=== PATIENT | female | born 1995 | race Caucasian/White ===

== ENCOUNTER 2017-05-17 21:12 | Emergency (ER) | payer OTHER, MEDICAID ==
[2017-05-17 21:35] VITALS: PULSE 88; TEMP 97.7
[2017-05-17] MEDS ORDERED: predniSONE 20 MG TAB ONE (22:04)
[2017-05-17] MEDS ORDERED: predniSONE 20 MG TAB PO ONE (22:04)
--- NOTE | 2017-05-17 22:08 | EDPHY ---
H & P Stated Complaint: pain and swelling right side of face, orbital area, and right ear intermitt Time Seen by Provider: 05/17/17 21:25 HPI/ROS: CHIEF COMPLAINT: Right-sided facial pain History by patient HISTORY OF PRESENT ILLNESS: 22-year-old woman with a history of cluster headaches who presents complaining of intermittent episodes over the past 3 weeks of severe stabbing pain shooting behind her right eye followed by feeling of swelling on her right upper cheek and pain in that area which then migrates around into her ear. When it starts severe and she usually takes ibuprofen and Tylenol and the symptoms keith within half an hour. Sometimes she also takes Maxalt again with some relief. Episodes usually occur at night or 1st thing in the morning. When she gets the symptoms her right eye donovan in her right side of her nose runs. It is not associated with any difficulty in vision. She has had no fever chills or been otherwise ill. She denies URI symptoms. Her sat face also feels better when she puts pressure on it with her hand. She says the symptoms are different than her cluster headaches which she has had in the past which are more of shooting pain in her right eye accompanied by right- sided headache. She has been on verapamil in the past for the cluster headaches with minimal relief. She did not tolerate subcutaneous sumatriptan. She says the maxilla sometimes helps her. She says the oxygen it has helped her in the past for the cluster headaches. REVIEW OF SYSTEMS: As in HPI, and all other systems reviewed and are negative Source: Patient - Personal History Current Tetanus Diphtheria and Acellular Pertussis (TDAP): Yes Tetanus Vaccine Date: 2009 - Medical/Surgical History Hx Asthma: No Hx Chronic Respiratory Disease: No Hx Diabetes: No Hx Cardiac Disease: No Hx Renal Disease: No Hx Cirrhosis: No Hx Alcoholism: No Hx HIV/AIDS: No Hx Splenectomy or Spleen Trauma: No Other PMH: migraines,ADHD - Social History Smoking Status: Current every day smoker - Physical Exam Exam: General Appearance: Alert, slightly uncomfortable appearing. Eyes: Pupils equal and round no pallor or injection. Extraocular movements intact ENT, Mouth: Mucous membranes moist. No TMJ tenderness, no sinus tenderness Face: No obvious asymmetry or swelling or redness, mild tenderness over right zygoma, Ears: TMs clear bilaterally Respiratory: Normal, effort, There are no retractions, lungs are clear to auscultation. Cardiovascular: Regular rate and rhythm. Gastrointestinal: Abdomen is soft and nontender, no masses, bowel sounds normal. Neurological: Awake, alert and oriented x 3, no pronator drift, normal gait, no pronator drift, cranial nerves 2-12 are intact Skin: Warm and dry, no rashes. Musculoskeletal: Neck is supple nontender. Extremities are symmetrical, full range of motion. Psychiatric: Patient has normal affect, there is no agitation. Constitutional: Initial Vital Signs Temperature (C) 36.5 C 05/17/17 21:30 Heart Rate 88 05/17/17 21:30 Respiratory Rate 16 05/17/17 21:30 Blood Pressure 147/102 H 05/17/17 21:30 O2 Sat (%) 95 05/17/17 21:30 O2 Delivery Mode Room Air O2 (L/minute) 2 Allergies/Adverse Reactions: No Known Allergies Allergy (Verified 05/17/17 21:27) Home Medications: Medication Instructions Recorded SNEHAL 09/14/16 SUMAtriptan [Sumatriptan] 5 mg NS TID PRN #1 spray 05/17/17 predniSONE 20 mg PO DAILY #30 tablet 05/17/17 Medical Decision Making ED Course/Re-evaluation: 22-year-old woman with a history of cluster headaches presents with intermittent episodes of sharp pain before her eye and right-sided facial pain. The characteristics of the patient's episodes are consistent with cluster headache and the patient was immediately placed on oxygen emerged department with improvement. I suspect this is just a variant on her cluster headaches given the recurrent, nocturnal and brief nature of the episodes. Since oxygen is works well for the past and she responded to that in the ER we have arranged for home oxygen. Patient did not like verapamil did not feel helped for the past so we will give her a trial of prednisone as a preventative medication weight this time. In addition, the patient has not tolerated subcutaneous sumatriptan but we will try intranasal sumatriptan. I recommend close follow- up with her primary care physician and a neurologist or headache specialist given the ongoing recurrent nature of her symptoms. Patient understands and is agreeable to this plan. Departure - Departure Disposition: Home, Routine, Self-Care Clinical Impression: Cluster headache syndrome, unspecified Qualifiers: Headache chronicity pattern: episodic headache Intractability: not intractable Qualified Code(s): G44.019 - Episodic cluster headache, not intractable Condition: Fair Instructions: Cluster Headache (ED) Additional Instructions: You were seen by Dr. Anmu Wesley today. Use the oxygen when you are having symptoms, especially at night. Take prednisone as prescribed to prevent the headache and face pain. Try the intranasal sumatriptan when you get the severe symptoms. [place] into opposite the side where you are having pain. Do not use the sumatriptan more than 3 time in a single day. Follow up with your primary care physician and a neurologist for ongoing treatment of your headaches. Call [facility] to schedule an appointment. Return for any worsening or new concerns. Referrals: NONE *PRIMARY CARE P,. [Primary Care Provider] - As per Instructions [facility] [Outside] - As per Instructions Prescriptions: predniSONE 20 mg PO DAILY #30 tablet SUMAtriptan [Sumatriptan] 5 mg NS TID PRN #1 spray PRN Reason: Headache
[2017-05-17 23:05] VITALS: BP 145/86; RESP 14; O2SAT 99
== END 2017-05-17 22:55 | disposition home or self-care (01) ==
LOC: CED 21:12
DX: G44.019 Episodic cluster headache, not intractable (principal); F17.200 Nicotine dependence, unspecified, uncomplicated

== ENCOUNTER 2018-12-09 19:53 | Emergency (ER) | payer OTHER, MEDICAID ==
[2018-12-09 20:07] VITALS: BP 152/114
--- NOTE | 2018-12-09 20:11 | EDPHY ---
H & P Stated Complaint: Frequent, painful urination with fever (per pt.) x 3 days. Time Seen by Provider: 12/09/18 19:55 HPI/ROS: 23-year-old female presents complaining of 3 days of dysuria, frequent urination with burning on urination. She states she has had several urinary tract infections in the last year, with the last 1 being approximately 3 months ago. Over the last 3 days she has been taking Uristat. She also complains of lower back pain and states her period is starting today. No flank pain. Review of systems As per HPI General no fever no chills no weakness HEENT no eye pain no eye discharge. No eye redness, no sore throat Respiratory no cough, no shortness of breath Cardiac no chest pain, no peripheral edema GI no abdominal pain, no diarrhea, no constipation, no nausea, no vomiting no flank pain, no hematuria, positive dysuria Musculoskeletal no myalgias, no joint pain Heme no easy bruising, no easy bleeding Endo no polyuria, no polydipsia Skin no rashes, no pruritus Neuro no syncope, no dizziness, no headaches Source: Patient Exam Limitations: No limitations - Personal History LMP (Females 10-55): Over 28 Days Ago Tetanus Vaccine Date: 2009 - Medical/Surgical History Hx Asthma: No Hx Chronic Respiratory Disease: No Hx Diabetes: No Hx Cardiac Disease: No Hx Renal Disease: No Hx Cirrhosis: No Hx Alcoholism: No Hx HIV/AIDS: No Hx Splenectomy or Spleen Trauma: No Other PMH: migraines,ADHD - Family History Significant Family History: No pertinent family hx - Social History Smoking Status: Former smoker Alcohol Use: None Drug Use: None - Physical Exam Exam: 23-year-old Female alert and oriented in no acute distress nontoxic appearance, afebrile Atraumatic normocephalic Neck supple Lungs clear to auscultation bilaterally Heart regular rate and rhythm Abdomen normoactive bowel sounds soft mild suprapubic tenderness no guarding no rebound Back no CVA tenderness Extremities no cyanosis clubbing or edema Skin no rash Constitutional: Initial Vital Signs Temperature (C) 37 C 12/09/18 20:04 Heart Rate 88 12/09/18 20:04 Respiratory Rate 16 12/09/18 20:04 Blood Pressure 152/114 H 12/09/18 20:04 O2 Sat (%) 100 12/09/18 20:04 O2 Delivery Mode Room Air Allergies/Adverse Reactions: No Known Allergies Allergy (Verified 12/09/18 20:04) Home Medications: Medication Instructions Recorded Control Pill 12/09/18 Cephalexin 500 mg PO BID 5 Days #10 tablet 12/09/18 Medical Decision Making ED Course/Re-evaluation: Patient seen and evaluated for urinary frequency with burning of 3 days duration. Urine dip positive for leuk esterase Urine dip negative for Urine culture pending Patient given ibuprofen, phenazopyridine while in the emergency department as well as a 1st dose of cephalexin Impression Urinary tract infection Plan Cephalexin 500 twice daily x7 days Differential Diagnosis: Differential diagnosis considered but not limited to: Urinary tract infection, polyuria secondary to diabetes, pyelonephritis - Data Points Medications Given: Discontinued Medications Cephalexin (Keflex 500 Mg Prepack#4) 1 btl TAKEHOME EDNOW ONE PRN Reason: Protocol Stop: 12/09/18 20:18 Last Admin: 12/09/18 20:25 Dose: 1 btl Phenazopyridine HCl (Pyridium) 200 mg PO EDNOW ONE Stop: 12/09/18 20:21 Last Admin: 12/09/18 20:24 Dose: 200 mg Point of Care Test Results: Urine Collection Date 12/09/18 Collection Time 19:55 HCG Results Negative Urine Dip Collection Date 12/09/18 Collection Time 19:55 Specific [place] (1.002-1.030) 1.005 PH (5.0-7.5) 7.0 Leukocytes (Negative) Trace Nitrites (Negative) Negative Protein (Negative) Negative Glucose (Negative) Negative Ketones (Negative) Negative Urobilnogen (0.2-1.0 EU) 0.2 Bilirubin (Negative) Negative Blood (Negative) 2+ Departure - Departure Disposition: Home, Routine, Self-Care Clinical Impression: Urinary tract infection Condition: Good Instructions: Cephalexin (By mouth), Urinary Tract Infection in Women (ED) Referrals: NONE *PRIMARY CARE P,. [Primary Care Provider] - As per Instructions [facility] [Provider Group] - As per Instructions Prescriptions: Cephalexin 500 mg PO BID 5 Days #10 tablet
[2018-12-09] MEDS ORDERED: CEPHALEXIN 500MG PREPACK#4 BTL TAKEHOME ONE ×2 (20:17→20:20)
[2018-12-09] MEDS ORDERED: IBUPROFEN 600 MG TAB PO ONE (20:20)
[2018-12-09] MEDS ORDERED: PHENAZOPYRIDINE HCL 200 MG TAB ONE (20:20)
[2018-12-09] MEDS ORDERED: PHENAZOPYRIDINE HCL 200 MG TAB PO ONE (20:20)
== END 2018-12-09 20:34 | disposition home or self-care (01) ==
LOC: CED 19:53
DX: N39.0 Urinary tract infection, site not specified (principal); Z87.891 Personal history of nicotine dependence
CPT/HCPCS: 99283-ER

== ENCOUNTER 2019-01-17 12:33 | Emergency (ER) | payer MEDICAID, OTHER ==
--- NOTE | 2019-01-17 13:06 | EDPHY ---
H & P Stated Complaint: Urinary frequency, urgency, and pain with urination x 3 days Time Seen by Provider: 01/17/19 12:42 HPI/ROS: CHIEF COMPLAINT: Pain with urination HISTORY OF PRESENT ILLNESS: This is a generally healthy 23-year-old female who presents with 3 days of dysuria, urgency, and frequency. She has not had fever. She does not have flank pain. No nausea, vomiting, or abdominal pain. She had a urinary tract infection last month and was treated with nitrofurantoin. She recovered but is now having similar symptoms. She has taken Azo twice within the last 12 hr, with some relief of her symptoms. She denies vaginal discharge and has no history of sexually transmitted diseases. She is sexually active on control pills; has not missed any. Her menstrual period is 1 week late. REVIEW OF SYSTEMS: A ten system review of systems was performed and is negative with the exception of the items mentioned in the HPI. 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 She does not use tobacco products. General Appearance: Alert. Vital signs reviewed. Blood pressure 141/93 at triage. Eyes: Pupils equal and round, no conjunctival injection, no discharge. Anicteric. ENT, Mouth: Mucous membranes are moist, no oropharyngeal erythema or edema. Neck: No lymphadenopathy, supple. Respiratory: Lungs are clear to auscultation; no wheezes, rales, or rhonchi. Cardiovascular: Regular rate and rhythm; no murmur, rub, or gallop. Gastrointestinal: Abdomen is soft and nontender, no masses or organomegaly, bowel sounds normal. Skin: Warm and dry, no rashes on exposed skin, normal color. Back: Nontender to palpation over the thoracolumbar spine. No CVAT. Extremities: No lower extremity edema, no calf tenderness or swelling. Neurological: Alert and oriented. Moving all four extremities easily and equally. Psychiatric: Normal affect. - Personal History LMP (Females 10-55): Over 28 Days Ago Current Tetanus Diphtheria and Acellular Pertussis (TDAP): Yes Tetanus Vaccine Date: within 10 years - Medical/Surgical History Hx Asthma: No Hx Chronic Respiratory Disease: No Hx Diabetes: No Hx Cardiac Disease: No Hx Renal Disease: No Hx Cirrhosis: No Hx Alcoholism: No Hx HIV/AIDS: No Hx Splenectomy or Spleen Trauma: No Other PMH: migraines, ADHD - Social History Smoking Status: Former smoker Constitutional: Initial Vital Signs Temperature (C) 36.8 C 01/17/19 12:38 Heart Rate 90 01/17/19 12:38 Respiratory Rate 16 01/17/19 12:38 Blood Pressure 141/93 H 01/17/19 12:38 O2 Sat (%) 97 01/17/19 12:38 O2 Delivery Mode Room Air Allergies/Adverse Reactions: No Known Allergies Allergy (Verified 01/17/19 12:40) Home Medications: Medication Instructions Recorded Control Pill 01/17/19 Cephalexin [Keflex] 500 mg PO BID #14 cap 01/17/19 Phenazopyridine HCl [Pyridium] 200 mg PO TID PRN #4 tab 01/17/19 Vyvanse 01/17/19 Medical Decision Making ED Course/Re-evaluation: Urine test is negative. Because she has taken azo, the machine used for urinalysis at [facility] ED is not accurate. Her urine sample has been sent to [facility] for testing. However, she has all the signs and symptoms of cystitis and I think that the prudent approach is to treat her with antibiotics. She took a course of nitrofurantoin last month. She is being prescribed Keflex today. Urine culture will be obtained. Differential Diagnosis: I considered a differential diagnosis that includes but is not limited to urinary tract infection, pyelonephritis, ureterolithiasis, ovarian cyst, and appendicitis. - Data Points Point of Care Test Results: Urine Collection Date 01/17/19 Collection Time 12:40 HCG Results Negative Departure - Departure Disposition: Home, Routine, Self-Care Clinical Impression: Urinary tract infection Qualifiers: Urinary tract infection type: acute cystitis Hematuria presence: without hematuria Qualified Code(s): N30.00 - Acute cystitis without hematuria Condition: Good Instructions: Urinary Tract Infection in Women (ED) Additional Instructions: I am prescribing antibiotics for urinary tract infection. As you know, your urinalysis is not yet available. However, you have all the signs and symptoms of urinary tract infection and I think that starting antibiotics as the right approach. If you continue to have frequent urinary tract infection she need to be seen by her primary care doctor. Your blood pressure was high in the emergency department and you should have this rechecked by your PCP. Referrals: [facility] [Other] - As per Instructions Prescriptions: Cephalexin [Keflex] 500 mg PO BID #14 cap Phenazopyridine HCl [Pyridium] 200 mg PO TID PRN #4 tab PRN Reason: Pain with urination
[2019-01-17 13:15] VITALS: BP 122/80
== END 2019-01-17 13:12 | disposition home or self-care (01) ==
LOC: CED 12:33
DX: N30.00 Acute cystitis without hematuria (principal); G43.909 Migraine, unspecified, not intractable, without status migrainosus; F90.9 Attention-deficit hyperactivity disorder, unspecified type; Z87.891 Personal history of nicotine dependence
CPT/HCPCS: 99284-ER

== ENCOUNTER 2019-01-29 19:35 | Emergency (ER) | payer OTHER ==
[2019-01-29] MEDS ORDERED: ONDANSETRON 4 MG/2 ML VIAL IVP ONE (19:53)
[2019-01-29] MEDS ORDERED: FAMOTIDINE 20 MG in NS 100 ML IV ONE (19:53)
[2019-01-29] MEDS ORDERED: NS 1,000 ML IV ONE (19:53)
[2019-01-29] MEDS ORDERED: LIDOCAINE 2% VISCOUS 15 ML UDCUP PO ONE (20:30)
[2019-01-29] MEDS ORDERED: HYOSCYAMINE SULFATE 0.125 MG TAB PO ONE (20:30)
[2019-01-29] MEDS ORDERED: MAG HYDROX/AL HYDROX/SIMETH 30 ML UDCUP PO ONE (20:30)
--- NOTE | 2019-01-29 20:35 | EDPHY ---
H & P Time Seen by Provider: 01/29/19 19:44 HPI/ROS: HPI Burning abdominal discomfort, nausea and vomiting. 24-year-old female by private vehicle with her boyfriend. This patient states that she has been under a lot of stress the last week because she has started a new job. She reports that she developed a burning abdominal discomfort in her mid abdomen which radiated up through her epigastric area and into her esophagus starting earlier this morning. She reports that she developed nausea followed by vomiting at around 1:00 p.m. Today. She reports having several episodes of nonbilious, nonbloody vomiting. She reports that she had a similar discomfort without the nausea and vomiting about a week ago. This lasted about an hour and then went away on its own. She reports that she had her last bowel movement yesterday. This was normal. No bloody or melenic stool. No diarrhea. Last menstrual period was 6 weeks ago. She is usually very regular. No foreign travel. No change in diet. She does not drink alcohol except on a social basis. ROS: Constitutional: No fever, no chills. No weakness. Respiratory: No cough. No shortness of breath. Cardiac: No chest pain, no palpitations. Gastrointestinal: As above. Genitourinary: No hematuria. No dysuria or increased frequency with urination. Musculoskeletal: No back pain. No neck pain. No myalgias or arthralgias. Neurological: No headache. No focal weakness or altered sensation. Past medical history: Migraine headaches. Attention deficit hyperactivity disorder. Social history: Nonsmoker. She is with her boyfriend. As above. Physical Exam: General Appearance: Alert, she is anxious but not in distress. This patient is responding to questions appropriately and in full sentences. This patient appears well-hydrated and well-nourished. Eyes: Pupils equal and round no pallor or injection. No lid edema, erythema or injection. Respiratory: There are no retractions, lungs are clear to auscultation with good air movement bilaterally. Cardiovascular: Regular rate and rhythm. No murmur. Gastrointestinal: Abdomen is soft with mild and vague tenderness throughout on palpation, no masses, bowel sounds normal. No focal tenderness at McBurney's point. No Jade sign. Neurological: Motor sensory function is grossly intact. Cranial nerves are normal. Gait is normal. Skin: Warm and dry, no rashes. Musculoskeletal: No CVA tenderness bilaterally. Extremities are symmetrical. All joints range without pain or impingement. Psychiatric: No agitation. No depression. Database: EKG: Imaging: Procedures: Emergency department course: Triage vital signs reviewed and are normal. IV was placed. She was started on IV normal saline with 1 L to be given over the next hour. She was initially given 20 mg of IV Pepcid and 4 mg of IV Zofran. After her nausea resolved she was given a GI cocktail. Urinalysis obtained. Urine negative. Blood work to be obtained as well. Patient endorses workup. 8:45 p.m., the patient was re-evaluated. She is very anxious. I feel this is driving her gastritis. She was given 1 mg of IV Ativan. Repeat abdominal exam is as above. 9:15 p.m., patient re-evaluated. She is now feeling much better after above medications. She is relaxed and comfortable. She has been tolerating oral fluids without issue. Repeat abdominal exam she is soft, nontender nondistended. I discussed results of her blood work and urinalysis with her and her significant other. She feels comfortable going home. Her boyfriend will be driving. I feel she is safe for discharge. Follow-up and return to emergency department precautions have been reviewed with her. All of her questions were answered. She was discharged from the emergency department in good condition. Differential Diagnosis: The differential diagnosis on this patient includes but is not limited to gastritis, food-borne illness, anxiety. Pancreatitis, cholecystitis, bowel obstruction, appendicitis unlikely. This represents a partial list of diagnoses considered. These considerations are based on history, physical exam , past history, reassessment and diagnostic testing. Smoking Status: Former smoker Constitutional: Initial Vital Signs Temperature (C) 37.1 C 01/29/19 19:46 Heart Rate 95 01/29/19 19:46 Respiratory Rate 16 01/29/19 19:46 Blood Pressure 134/89 H 01/29/19 19:46 O2 Sat (%) 98 01/29/19 19:46 O2 Delivery Mode Room Air Allergies/Adverse Reactions: No Known Allergies Allergy (Verified 01/17/19 12:40) Home Medications: Medication Instructions Recorded Control Pill 01/17/19 Vyvanse 01/17/19 Medical Decision Making - Data Points Laboratory Results: 01/29/19 20:33 POC Sodium 139 mEq/L mEq/L (135-145) POC Potassium 3.2 mEq/L L mEq/L (3.3-5.0) POC Chloride 105.0 mEq/L mEq/L (97-110) POC Total CO2 24 mEq/L mEq/L (22-31) POC BUN 15 mg/dL mg/dL (7-23) POC Creatinine 0.7 mg/dL mg/dL (0.6-1.0) POC Glucose 104 mg/dL H mg/dL (70-100) POC Calcium 9.9 mg/dL mg/dL (8.5-10.4) POC Total Bilirubin 0.8 mg/dL mg/dL (0.1-1.4) POC AST 29 IU/L IU/L (14-46) POC ALT 22 IU/L IU/L (9-52) POC Alk Phosphatase 63 IU/L IU/L (38-126) POC Total Protein 7.9 g/dL g/dL (6.3-8.2) POC Albumin 4.4 g/dL g/dL (3.5-5.0) Medications Given: Discontinued Medications Al Hydroxide/Mg Hydroxide (Maalox Susp) 30 ml PO ONCE ONE Stop: 01/29/19 20:31 Last Admin: 01/29/19 20:43 Dose: 30 ml Hyoscyamine Sulfate (Levsin, Hyomax-Sl) 0.25 mg PO ONCE ONE Stop: 01/29/19 20:31 Last Admin: 01/29/19 20:43 Dose: 0.25 mg Sodium Chloride (Ns) 1,000 mls @ 0 mls/hr IV EDNOW ONE; Wide Open PRN Reason: Protocol Stop: 01/29/19 19:54 Last Admin: 01/29/19 20:16 Dose: 1,000 mls Famotidine 20 mg/ Sodium (Chloride) 102 mls @ 408 mls/hr IV EDNOW ONE Stop: 01/29/19 20:07 Last Admin: 01/29/19 20:22 Dose: 102 mls Lidocaine (Lidocaine 2% Viscous) 15 ml PO ONCE ONE Stop: 01/29/19 20:31 Last Admin: 01/29/19 20:43 Dose: 15 ml Lorazepam (Ativan Injection) 1 mg IVP EDNOW ONE Stop: 01/29/19 20:45 Last Admin: 01/29/19 20:47 Dose: 1 mg Ondansetron HCl (Zofran) 4 mg IVP EDNOW ONE Stop: 01/29/19 19:54 Last Admin: 01/29/19 20:18 Dose: 4 mg Point of Care Test Results: CBC CBC Collection Date 01/29/19 CBC Collection Time 20:25 WBC 7.76 RBC 5.06 HGB 15.5 HCT 44.4 PLT 229 Neut # 6.41 Neut 82.6 LYMPH # 0.96 LYMPH 12.4 MCV 87.7 Chemistry 01/29/19 20:33 POC Sodium 139 mEq/L mEq/L (135-145) POC Potassium 3.2 mEq/L L mEq/L (3.3-5.0) POC Chloride 105.0 mEq/L mEq/L (97-110) POC Total CO2 24 mEq/L mEq/L (22-31) POC BUN 15 mg/dL mg/dL (7-23) POC Creatinine 0.7 mg/dL mg/dL (0.6-1.0) POC Glucose 104 mg/dL H mg/dL (70-100) POC Calcium 9.9 mg/dL mg/dL (8.5-10.4) POC Total Bilirubin 0.8 mg/dL mg/dL (0.1-1.4) POC AST 29 IU/L IU/L (14-46) POC ALT 22 IU/L IU/L (9-52) POC Alk Phosphatase 63 IU/L IU/L (38-126) POC Total Protein 7.9 g/dL g/dL (6.3-8.2) POC Albumin 4.4 g/dL g/dL (3.5-5.0) Urine Collection Date 01/29/19 Collection Time 19:50 HCG Results Negative Urine Dip Collection Date 01/29/19 Collection Time 19:50 Specific [place] (1.002-1.030) 1.025 PH (5.0-7.5) 6.0 Leukocytes (Negative) Negative Nitrites (Negative) Negative Protein (Negative) Negative Glucose (Negative) Negative Ketones (Negative) Negative Urobilnogen (0.2-1.0 EU) 0.2 Bilirubin (Negative) Negative Blood (Negative) Negative Departure - Departure Disposition: Home, Routine, Self-Care Clinical Impression: Abdominal pain, Nausea and vomiting, Anxiety, Hypokalemia Condition: Good Instructions: Abdominal Pain (ED), Hypokalemia (ED) Additional Instructions: Read and follow provided instructions. Avoid spicy and fatty foods. Avoid alcohol. Avoid ibuprofen and other NSAID medications. Follow-up with your primary care physician early next week for re-evaluation. Zofran nausea medication: 1 tablet sublingual every 4-6 hours as needed for nausea. Return to the emergency department for worsening symptoms, worsening abdominal pain, vomiting and inability to keep fluids down or other serious concerns. Referrals: NONE *PRIMARY CARE P,. [Primary Care Provider] - As per Instructions
[2019-01-29] MEDS ORDERED: LORazepam 2 MG/ML INJ IVP ONE (20:44)
[2019-01-29] MEDS ORDERED: ONDANSETRON 4MG PREPACK#2 BTL TAKEHOME ONE (21:18)
[2019-01-29 21:22] VITALS: BP 117/80
== END 2019-01-29 21:55 | disposition home or self-care (01) ==
LOC: CED 19:35
DX: R10.13 Epigastric pain (principal); R11.2 Nausea with vomiting, unspecified; F41.9 Anxiety disorder, unspecified; E87.6 Hypokalemia; E86.9 Volume depletion, unspecified
CPT/HCPCS: 80053-ER; 96361-ER; 96365; 96375-ER; 99284-ER; J2060; J2405